=== PATIENT | male | born 1995 | race African-American/Black ===

== ENCOUNTER 2018-11-04 09:09 | Emergency (ER) | payer SELFPAY ==
[~2018-11-04] VITALS: Ht 175.3 cm; Wt 72.6 kg
--- NOTE | 2018-11-04 09:10 | NUR ---
Patient to ER bed 3 to gown for evaluation. Side rails up. Report given to Paige WILCOX.
--- NOTE | 2018-11-04 09:11 | NUR ---
pateint brought in by [facility]. Per deputy patient was resisting and had to be taken down. Pateint is complaining of pain on the right orbit. Condition is stable.
[2018-11-04 09:17] VITALS: BP_SYST 111
--- NOTE | 2018-11-04 09:19 | NUR ---
Patient refused to have visual test performed.
--- NOTE | 2018-11-04 09:33 | NUR ---
ER Dr. Qiu at bedside examining patient.
--- NOTE | 2018-11-04 10:33 | NUR ---
Patient given written and verbal discharge instructions and verbalizes understanding, escorted by Deputy Jesica STEPHENS MD discussed with patient the results and treatment provided. Patient in stable condition. ID arm band removed.Patient educated on pain management and to follow up with PMD. Pain Scale 0/10. Opportunity for questions provided and answered. Medication side effect fact sheet provided.
[2018-11-04 10:34] VITALS: BP_SYST 111
== END 2018-11-04 10:34 ==
LOC: SED 09:09
DX: Z02.89 Encounter for other administrative examinations (principal)
CPT/HCPCS: 99283